=== PATIENT | male | born 1960 | race African-American/Black ===

== ENCOUNTER 2017-04-05 08:41 | Inpatient (IN) | payer OTHER ==
[2017-04-05 09:46] VITALS: BMI 18.7
--- NOTE | 2017-04-05 11:40 | HP ---
CIWA Score - CIWA Score Nausea/Vomitin Muscle Tremors: 3 Anxiety: 3 Agitation: 3 Paroxysmal Sweats: 3 Orientation: 0-Oriented Tacttile Disturbances: 1-Very Mild Itch/Numbness Auditory Disturbances: 0-None Visual Disturbances: 0-None Headache: 1-Very Mild CIWA-Ar Total Score: 17 Admission [facility] Chief Complaint: alcohol withdrawal sx Allergies/Adverse Reactions: Allergies Allergy/AdvReac Type Severity Reaction Status Date / Time No Known Allergies Allergy Verified 04/05/17 10:19 History of Present Illness: 56 yo m with h/o chronic alcoholism admitted for first detox to [facility]. 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, rreports alcohol withdrwal sx when he does nto drink Exam Limitations: No Limitations - Ebola screening Have you traveled outside of the country in the last 21 days: No Have you had contact with anyone from an Ebola affected area: No Have you been sick,other than usual withdrawal symptoms: No - Review of Systems Constitutional: Chills, Diaphoresis, Night Sweats, Weight Stable EENT: reports: No Symptoms Reported Respiratory: reports: No Symptoms reported Cardiac: reports: No Symptoms Reported GI: reports: Diarrhea, Nausea, Poor Appetite, Poor Fluid Intake, Abdominal cramping Integumentary: reports: Flushing, Sweating Neuro: reports: Headache, Numbness, Paresthesia, Seizure (withdrawal vs epilepsy on medication), Tingling, Tremors, Weakness Endocrine: reports: Increased Thirst Hematology: reports: No Symptoms Reported Psychiatric: reports: Judgement Intact, Mood/Affect Appropiate, Agitated, Anxious, Depressed Other Systems: Reviewed and Negative Patient History - Patient Medical History Hx Anemia: No Hx Asthma: No Hx Chronic Obstructive Pulmonary Disease (COPD): No Hx Cancer: No Hx Cardiac Disorders: No Hx Congestive Heart Failure: No Hx Hypertension: No Hx Hypercholesterolemia: No Hx Pacemaker: No HX Cerebrovascular Accident: No Hx Seizures: Yes (SEIZURE DISORDER LAST 1 YR AGO.) Hx Dementia: No Hx Diabetes: No Hx Gastrointestinal Disorders: No Hx Liver Disease: No Hx Genitourinary Disorders: No Hx Sexually Transmitted Disorders: No Hx Renal Disease (ESRD): No Hx Thyroid Disease: No Hx Human Immunodeficiency Virus (HIV): No Hx Hepatitis C: No Hx Depression: No Hx Suicide Attempt: No (no si at thsi time) Hx Bipolar Disorder: No Hx Schizophrenia: No - Patient Surgical History Past Surgical History: No Anesthesia Reaction: No - PPD History Previous Implant?: No PPD to be Administered?: Yes - Reproductive History Patient is a Female of Child Bearing Age (11 -55 yrs old): No Patient : No - Smoking Cessation Smoking history: Current every day smoker Have you smoked in the past 12 months: Yes Aproximately how many cigarettes per day: 5 Hx Chewing Tobacco Use: No Initiated information on smoking cessation: Yes 'Breaking Loose' booklet given: 04/05/17 - Substance & Tx. History Hx Alcohol Use: Yes Hx Substance Use: No Substance Use Type: Alcohol Hx Substance Use Treatment: Yes (outpatient [facility]) - Substances Abused Alcohol Route: Oral Frequency: Daily Amount used: 6PK BEER/ 1 PINT MCKENZIE Age of first use: 12 Date of Last Use: 04/05/17 Family Disease History - Family Disease History Family History: Denies Admission Physical Exam S - Vital Signs Vital Signs: Vital Signs - 24 hr 04/05/17 09:43 Temperature 96.5 F L Pulse Rate 52 L Respiratory 18 Rate Blood Pressure 140/100 - Physical General Appearance: Yes: Nourished, Appropriately Dressed, Disheveled, Mild Distress, Alcohol on Breath, Thin, Tremorous, Irritable, Sweating, Anxious HEENTM: Yes: EOMI, Hearing grossly Normal, Normocephalic, Normal Voice, MARTINE, Nasal Congestion Respiratory: Yes: Within Normal Limits, Chest Non-Tender, Lungs Clear, Normal Breath Sounds, No Respiratory Distress, No Accessory Muscle Use Neck: Yes: Within Normal Limits, No masses,lesions,Nodules, Supple, Trachea in good position Breast: Yes: Breast Exam Deferred Cardiology: Yes: Within Normal Limits, Regular Rhythm, Regular Rate, S1, S2 Abdominal: Yes: Within Normal Limits, Normal Bowel Sounds, Non Tender, Flat, Soft Genitourinary: Yes: Within Normal Limits Back: Yes: Within Normal Limits Musculoskeletal: Yes: Within Normal Limits, full range of Motion, Gait Steady, Pelvis Stable Extremities: Yes: Within Normal Limits, Normal Capillary Refill, Normal Inspection, Normal Range of Motion, Non-Tender Neurological: Yes: cyanide case hardener II-XII NML intact, Fully Oriented, Alert, Motor Strength 5/5, Normal Response, Depressed Affect Integumentary: Yes: Normal Color, Warm, Diaphoresis, Moist Lymphatic: Yes: Within Normal Limits - Addiitonal Findings: withdrawal sx, - Diagnostic (1) Alcohol dependence with uncomplicated withdrawal Current Visit: Yes Status: Acute (2) Dehydration Current Visit: Yes Status: Acute (3) Depression Current Visit: Yes Status: Acute (4) Insomnia Current Visit: Yes Status: Acute (5) Anxiety Current Visit: Yes Status: Acute (6) Cannabis abuse Current Visit: Yes Status: Acute Cleared for Admission [facility] - Detox or Rehab [facility] Level of Care: Medically Managed Detox Regimen/Protocol: Librium [facility] Breath Alcohol Content Breath Alcohol Content: 0.184 Urine Drug Screen - Results Drug Screen Negative: No Urine Drug Screen Results: THC-Marijuana
[2017-04-05] MEDS ORDERED: guaiFENesin/D-METHORPHAN HB 10 ML UNIT-DOSE CUPS PO PRN (11:41)
[2017-04-05] MEDS ORDERED: MAG HYDROX/AL HYDROX/SIMETH 30 ML UNIT-DOSE CUP PO PRN (11:41)
[2017-04-05] MEDS ORDERED: NICOTINE POLACRILEX 2 MG GUM BC PRN (11:41)
[2017-04-05] MEDS ORDERED: MAGNESIUM CITRATE 300 ML BOTTLE PO PRN (11:41)
[2017-04-05] MEDS ORDERED: MENTHOL/PHENOL 1 EACH UD MM PRN (11:41)
[2017-04-05] MEDS ORDERED: LOPERAMIDE HCL 2 MG CAPSULE PO PRN (11:41)
[2017-04-05] MEDS ORDERED: MAGNESIUM HYDROX 2400MG/30ML ORAL SUSPENSION 30 ML CUP PO PRN (11:41)
[2017-04-05] MEDS ORDERED: chlordiazePOXIDE HCL 25 MG CAPSULE PO ONE ×2 (12:46→14:02)
[2017-04-05] MEDS: NICOTINE 14 MG/24 HOURS TOPICAL PATCH TD SCH (14:03)
[2017-04-05] MEDS: levETIRAcetam 250 MG TABLET (FP) PO SCH ×2 (14:09→22:14)
[2017-04-05] MEDS: chlordiazePOXIDE HCL 25 MG CAPSULE PO SCH ×2 (16:51→22:14)
[2017-04-05] MEDS: ACETAMINOPHEN 325 MG TABLET (FP) PO PRN ×2 (16:54→22:16)
[2017-04-05 17:22] LABS: URINE APPEARANCE CLEAR; URINE BILIRUBIN NEGATIVE (NEGATIVE); URINE BLOOD NEGATIVE (NEGATIVE); URINE COLOR STRAW; URINE GLUCOSE (UA) NEGATIVE (NEGATIVE); URINE KETONE NEGATIVE (NEGATIVE); URINE LEUK ESTERASE NEGATIVE (NEGATIVE); URINE NITRITE NEGATIVE (NEGATIVE); URINE PROTEIN NEGATIVE (NEGATIVE); URINE UROBILINOGEN NEGATIVE mg/dL (0.2-1.0)
--- NOTE | 2017-04-05 17:41 | CONSULT ---
[facility] Psychiatric Consult - Data Date of interview: 04/05/17 Admission source: [facility] Identifying data: First admission to [facility] for this 56 y/o AA male seeking detox treatment on for alcohol and marihuana dependence.Patient declines to provide demographic information. Substance Abuse History: Information taken from [facility] report.Patient refuses to elaborate on his pattern of substance abuse." You should know better.The information is already in my file from downstairs.". Smoking history: Current every day smoker. Have you smoked in the past 12 months: Yes. Aproximately how many cigarettes per day: 5. Hx Chewing Tobacco Use: No. Initiated information on smoking cessation: Yes. 'Breaking Loose' booklet given: . - Substance & Tx. History. Hx Alcohol Use: Yes. Hx Substance Use: No. Substance Use Type: Alcohol. Hx Substance Use Treatment: Yes (outpatient [facility]). - Substances Abused. Alcohol. Route: Oral. Frequency: Daily. Amount used: 6PK BEER/ 1 PINT MCKENZIE. Age of first use: 12. Date of Last Use: 04/05/17 Medical History: Information extracted from [facility] report : seizure disorder (on levetiracetam) and arthritis. Psychiatric History: Patient denies. Physical/Sexual Abuse/Trauma History: Patient denies. Additional Comment: Urine Drug Screen Results: THC-Marijuana.Noted. Mental Status Exam - Mental Status Exam Alert and Oriented to: Time, Place, Person Cognitive Function: Grossly Intact Patient Appearance: Unkempt, Disheveled (thin habitus) Mood: Nervous, Anxious, Irritable Affect: Inappropriate Patient Behavior: Fatigued, Uncooperative, Guarded, Suspicious Speech Pattern: Clear Voice Loudness: Normal Thought Process: Goal Oriented Thought Disorder: Bizarre Hallucinations: Denies Suicidal Ideation: Denies Homicidal Ideation: Denies Insight/Judgement: Poor Sleep: Well Appetite: Good (observed eating diner) Gait/Station: Normal Psychiatric Findings - Problem List ([place] 1, 2,3) (1) Alcohol dependence with uncomplicated withdrawal Current Visit: Yes Status: Acute (2) Cannabis abuse Current Visit: Yes Status: Acute (3) Nicotine dependence Current Visit: Yes Status: Acute (4) Substance induced mood disorder Current Visit: Yes Status: Suspected - Initial Treatment Plan Initial Treatment Plan: Psychoeducation : rejected by patient.Detoxification in effect.Observation.
[2017-04-05] MEDS: P-EPHED 60MG/TRIPROLIDI 2.5MG TABLET PO PRN (20:52)
[2017-04-05] MEDS: THIAMINE HCL 100 MG TABLET (FP) PO SCH (22:14)
[2017-04-06] MEDS: chlordiazePOXIDE HCL 25 MG CAPSULE PO SCH ×4 (05:14→22:12)
[2017-04-06] MEDS: chlordiazePOXIDE HCL 25 MG CAPSULE PO PRN (07:28)
[2017-04-06] MEDS: NICOTINE 14 MG/24 HOURS TOPICAL PATCH TD SCH ×2 (09:24→11:21)
[2017-04-06] MEDS: PRENATAL VITAMINS W/ FOLIC ACID TABLET (FP) PO SCH (09:24)
[2017-04-06] MEDS: levETIRAcetam 250 MG TABLET (FP) PO SCH ×2 (10:05→22:12)
[2017-04-06 10:09] LABS: HEMATOCRIT 38.5 % (35.4-49); HEMOGLOBIN 12.6 GM/dL (11.7-16.9); MCHC 32.8 g/dl (32.0-35.9); MEAN CELL VOLUME 100.4 fl (80-96); MEAN PLT VOLUME 8.6 fl (7.5-11.1); PLATELET COUNT 214 K/MM3 (134-434); RBC 3.83 M/mm3 (4.00-5.60); RDW 14.9 % (11.9-15.9); WHITE BLOOD COUNT 5.4 K/mm3 (4.0-10.0)
[2017-04-06 10:14] LABS: CHLORIDE 106 mmol/L (98-107); POTASSIUM 4.3 mmol/L (3.5-5.1); SODIUM 142 mmol/L (136-145)
[2017-04-06 10:29] LABS: ALBUMIN 4.1 g/dl (3.4-5.0); ALK PHOS 101 U/L (45-117); ANION GAP 11 (8-16); BILIRUBIN,TOTAL 0.3 mg/dL (0.2-1.0); BLOOD UREA NITROGEN 8 mg/dL (7-18); CALCIUM 9.3 mg/dL (8.5-10.1); CO2 25 mmol/L (21-32); CREATININE 1.2 mg/dL (0.7-1.3); GLUCOSE,RANDOM 67 mg/dL (74-106); SGOT/AST 85 U/L (15-37); SGPT/ALT 70 U/L (12-78)
--- NOTE | 2017-04-06 11:40 | EKG ---
Test Reason : Blood Pressure : / mmHG Vent. Rate : 060 BPM Atrial Rate : 060 BPM P-R Int : 190 ms QRS Dur : 086 ms QT Int : 392 ms P-R-T Axes : 074 055 038 degrees QTc Int : 392 ms NORMAL SINUS RHYTHM NORMAL ECG NO PREVIOUS ECGS AVAILABLE Confirmed by JAH FREY MD ([id number]) on 04/06/2017 11:39:58 AM Referred By: Confirmed By:JAH FREY MD
[2017-04-06] MEDS ORDERED: FLU VACCINE QUAD 60 MCG/0.5 ML (MDV 17-18) IM ONE (12:00)
--- NOTE | 2017-04-06 12:17 | PN ---
[facility] CIWA - CIWA Score Nausea/Vomitin-No Nausea/No Vomiting Muscle Tremors: 5 Anxiety: 4-Mod. Anxious/Guarded Agitation: 4-Moderately Restless Paroxysmal Sweats: 1-Minimal Palms Moist Orientation: 0-Oriented Tacttile Disturbances: 3-Moderate Itch/Numb/Burn Auditory Disturbances: 0-None Visual Disturbances: 0-None Headache: 0-None Present CIWA-Ar Total Score: 17 S Progress Note (SOAP) Subjective: IRRITABILITY,SWEATS,TREMORS,AGITATION, INTERMITTENT SLEEP. Objective: 04/06/17 12:16 Vital Signs Temperature 96.9 F L 04/06/17 09:34 Pulse Rate 63 04/06/17 09:34 Respiratory Rate 20 04/06/17 09:34 Blood Pressure 149/96 04/06/17 09:34 O2 Sat by Pulse Oximetry (%) Laboratory Last Values WBC 5.4 K/mm3 (4.0-10.0) 04/06/17 05:45 RBC 3.83 M/mm3 (4.00-5.60) L 04/06/17 05:45 Hgb 12.6 GM/dL (11.7-16.9) 04/06/17 05:45 Hct 38.5 % (35.4-49) 04/06/17 05:45 MCV 100.4 fl (80-96) H 04/06/17 05:45 MCH 33.0 pg (25.7-33.7) 04/06/17 05:45 MCHC 32.8 g/dl (32.0-35.9) 04/06/17 05:45 RDW 14.9 % (11.9-15.9) 04/06/17 05:45 Plt Count 214 K/MM3 (134-434) 04/06/17 05:45 MPV 8.6 fl (7.5-11.1) 04/06/17 05:45 Sodium 142 mmol/L (136-145) 04/06/17 05:45 Potassium 4.3 mmol/L (3.5-5.1) 04/06/17 05:45 Chloride 106 mmol/L (98-107) 04/06/17 05:45 Carbon Dioxide 25 mmol/L (21-32) 04/06/17 05:45 Anion Gap 11 (8-16) 04/06/17 05:45 BUN 8 mg/dL (7-18) 04/06/17 05:45 Creatinine 1.2 mg/dL (0.7-1.3) 04/06/17 05:45 Creat Clearance w eGFR > 60 (>60) 04/06/17 05:45 Random Glucose 67 mg/dL (74-106) L 04/06/17 05:45 Calcium 9.3 mg/dL (8.5-10.1) 04/06/17 05:45 Total Bilirubin 0.3 mg/dL (0.2-1.0) 04/06/17 05:45 AST 85 U/L (15-37) H 04/06/17 05:45 ALT 70 U/L (12-78) 04/06/17 05:45 Alkaline Phosphatase 101 U/L (45-117) 04/06/17 05:45 Total Protein 8.0 g/dl (6.4-8.2) 04/06/17 05:45 Albumin 4.1 g/dl (3.4-5.0) 04/06/17 05:45 Urine Color Straw 04/05/17 15:15 Urine Appearance Clear 04/05/17 15:15 Urine pH 5.0 (5.0-8.0) 04/05/17 15:15 Ur Specific [place] 1.009 (1.001-1.035) 04/05/17 15:15 Urine Protein Negative (NEGATIVE) 04/05/17 15:15 Urine Glucose (UA) Negative (NEGATIVE) 04/05/17 15:15 Urine Ketones Negative (NEGATIVE) 04/05/17 15:15 Urine Blood Negative (NEGATIVE) 04/05/17 15:15 Urine Nitrite Negative (NEGATIVE) 04/05/17 15:15 Urine Bilirubin Negative (NEGATIVE) 04/05/17 15:15 Urine Urobilinogen Negative mg/dL (0.2-1.0) 04/05/17 15:15 Ur Leukocyte Esterase Negative (NEGATIVE) 04/05/17 15:15 Assessment: 04/06/17 12:16 WITHDRAWAL SX Plan: CONTINUE DETOX
[2017-04-06] MEDS: P-EPHED 60MG/TRIPROLIDI 2.5MG TABLET PO PRN (17:01)
--- NOTE | 2017-04-06 17:14 | PN ---
[facility] Progress Note Note: received nurse call that the patient wants ensure
[2017-04-06] MEDS: THIAMINE HCL 100 MG TABLET (FP) PO SCH (22:11)
[2017-04-06] MEDS: ACETAMINOPHEN 325 MG TABLET (FP) PO PRN (22:12)
[2017-04-06] MEDS: hydrOXYzine PAMOATE 50 MG CAPSULE (FP) PO PRN (23:24)
[2017-04-07] MEDS: chlordiazePOXIDE HCL 25 MG CAPSULE PO SCH ×2 (04:02→10:16)
[2017-04-07] MEDS: chlordiazePOXIDE HCL 25 MG CAPSULE PO PRN (05:17)
[2017-04-07] MEDS: ACETAMINOPHEN 325 MG TABLET (FP) PO PRN (08:17)
[2017-04-07] MEDS: NICOTINE 14 MG/24 HOURS TOPICAL PATCH TD SCH (10:16)
[2017-04-07] MEDS: levETIRAcetam 250 MG TABLET (FP) PO SCH ×2 (10:16→22:43)
[2017-04-07] MEDS: PRENATAL VITAMINS W/ FOLIC ACID TABLET (FP) PO SCH (10:17)
--- NOTE | 2017-04-07 10:30 | PN ---
[facility] CIWA - CIWA Score Nausea/Vomitin-No Nausea/No Vomiting Muscle Tremors: 4-Moderate,w/Arms Extend Anxiety: 4-Mod. Anxious/Guarded Agitation: 4-Moderately Restless Paroxysmal Sweats: 1-Minimal Palms Moist Orientation: 0-Oriented Tacttile Disturbances: 3-Moderate Itch/Numb/Burn Auditory Disturbances: 0-None Visual Disturbances: 0-None Headache: 0-None Present CIWA-Ar Total Score: 16 S Progress Note (SOAP) Subjective: ANXIETY,SWEATS,IRRITABILITY,AGITATIONS,HEADACHE. Objective: 04/07/17 10:28 Vital Signs Temperature 97.5 F L 04/07/17 10:11 Pulse Rate 86 04/07/17 10:11 Respiratory Rate 18 04/07/17 10:11 Blood Pressure 142/89 04/07/17 10:11 O2 Sat by Pulse Oximetry (%) Laboratory Last Values WBC 5.4 K/mm3 (4.0-10.0) 04/06/17 05:45 RBC 3.83 M/mm3 (4.00-5.60) L 04/06/17 05:45 Hgb 12.6 GM/dL (11.7-16.9) 04/06/17 05:45 Hct 38.5 % (35.4-49) 04/06/17 05:45 MCV 100.4 fl (80-96) H 04/06/17 05:45 MCH 33.0 pg (25.7-33.7) 04/06/17 05:45 MCHC 32.8 g/dl (32.0-35.9) 04/06/17 05:45 RDW 14.9 % (11.9-15.9) 04/06/17 05:45 Plt Count 214 K/MM3 (134-434) 04/06/17 05:45 MPV 8.6 fl (7.5-11.1) 04/06/17 05:45 Sodium 142 mmol/L (136-145) 04/06/17 05:45 Potassium 4.3 mmol/L (3.5-5.1) 04/06/17 05:45 Chloride 106 mmol/L (98-107) 04/06/17 05:45 Carbon Dioxide 25 mmol/L (21-32) 04/06/17 05:45 Anion Gap 11 (8-16) 04/06/17 05:45 BUN 8 mg/dL (7-18) 04/06/17 05:45 Creatinine 1.2 mg/dL (0.7-1.3) 04/06/17 05:45 Creat Clearance w eGFR > 60 (>60) 04/06/17 05:45 Random Glucose 67 mg/dL (74-106) L 04/06/17 05:45 Calcium 9.3 mg/dL (8.5-10.1) 04/06/17 05:45 Total Bilirubin 0.3 mg/dL (0.2-1.0) 04/06/17 05:45 AST 85 U/L (15-37) H 04/06/17 05:45 ALT 70 U/L (12-78) 04/06/17 05:45 Alkaline Phosphatase 101 U/L (45-117) 04/06/17 05:45 Total Protein 8.0 g/dl (6.4-8.2) 04/06/17 05:45 Albumin 4.1 g/dl (3.4-5.0) 04/06/17 05:45 Urine Color Straw 04/05/17 15:15 Urine Appearance Clear 04/05/17 15:15 Urine pH 5.0 (5.0-8.0) 04/05/17 15:15 Ur Specific [place] 1.009 (1.001-1.035) 04/05/17 15:15 Urine Protein Negative (NEGATIVE) 04/05/17 15:15 Urine Glucose (UA) Negative (NEGATIVE) 04/05/17 15:15 Urine Ketones Negative (NEGATIVE) 04/05/17 15:15 Urine Blood Negative (NEGATIVE) 04/05/17 15:15 Urine Nitrite Negative (NEGATIVE) 04/05/17 15:15 Urine Bilirubin Negative (NEGATIVE) 04/05/17 15:15 Urine Urobilinogen Negative mg/dL (0.2-1.0) 04/05/17 15:15 Ur Leukocyte Esterase Negative (NEGATIVE) 04/05/17 15:15 RPR Titer Nonreactive (NONREACTIVE) 04/06/17 05:45 Assessment: 04/07/17 10:28 WITHDRAWAL SX Plan: CONTINUE DETOX
[2017-04-07] MEDS: chlordiazePOXIDE 5 MG CAPSULE PO SCH ×2 (17:38→22:43)
[2017-04-07] MEDS: IBUPROFEN 400 MG TABLET (FP) PO PRN (17:40)
[2017-04-07] MEDS: THIAMINE HCL 100 MG TABLET (FP) PO SCH (22:43)
[2017-04-07] MEDS: hydrOXYzine PAMOATE 50 MG CAPSULE (FP) PO PRN (22:46)
[2017-04-08] MEDS: chlordiazePOXIDE 5 MG CAPSULE PO SCH ×2 (05:19→10:40)
[2017-04-08] MEDS: PRENATAL VITAMINS W/ FOLIC ACID TABLET (FP) PO SCH (10:40)
[2017-04-08] MEDS: NICOTINE 14 MG/24 HOURS TOPICAL PATCH TD SCH (10:41)
[2017-04-08] MEDS: levETIRAcetam 250 MG TABLET (FP) PO SCH ×2 (10:41→22:32)
[2017-04-08] MEDS: ACETAMINOPHEN 325 MG TABLET (FP) PO PRN ×2 (10:52→22:34)
--- NOTE | 2017-04-08 14:50 | PN ---
[facility] Progress Note (SOAP) Subjective: Stomach Cramping, interrupted Sleep, Tremors, Anxious. Objective: PT. A & O X 3, OBSERVED AMBULATING ON UNIT. NO ACUTE DISTRESS. 04/08/17 14:48 Vital Signs Temperature 98.1 F 04/08/17 13:51 Pulse Rate 98 H 04/08/17 13:51 Respiratory Rate 18 04/08/17 13:51 Blood Pressure 141/100 04/08/17 13:51 O2 Sat by Pulse Oximetry (%) Laboratory Tests 04/05/17 04/05/17 04/06/17 11:50 15:15 05:45 WBC 5.4 RBC 3.83 L Hgb 12.6 Hct 38.5 MCV 100.4 H MCH 33.0 MCHC 32.8 RDW 14.9 Plt Count 214 MPV 8.6 Sodium Potassium Chloride Carbon Dioxide Anion Gap BUN Creatinine Creat Clearance w eGFR Random Glucose Calcium Total Bilirubin AST ALT Alkaline Phosphatase Total Protein Albumin Urine Color Straw Urine Appearance Clear Urine pH 5.0 Ur Specific [place] 1.009 Urine Protein Negative Urine Glucose (UA) Negative Urine Ketones Negative Urine Blood Negative Urine Nitrite Negative Urine Bilirubin Negative Urine Urobilinogen Negative Ur Leukocyte Esterase Negative Levetiracetam 8.3 L RPR Titer 04/06/17 04/06/17 05:45 05:45 WBC RBC Hgb Hct MCV MCH MCHC RDW Plt Count MPV Sodium 142 Potassium 4.3 Chloride 106 Carbon Dioxide 25 Anion Gap 11 BUN 8 Creatinine 1.2 Creat Clearance w eGFR > 60 Random Glucose 67 L Calcium 9.3 Total Bilirubin 0.3 AST 85 H ALT 70 Alkaline Phosphatase 101 Total Protein 8.0 Albumin 4.1 Urine Color Urine Appearance Urine pH Ur Specific [place] Urine Protein Urine Glucose (UA) Urine Ketones Urine Blood Urine Nitrite Urine Bilirubin Urine Urobilinogen Ur Leukocyte Esterase Levetiracetam RPR Titer Nonreactive LABS NOTED. Assessment: 04/08/17 14:49 WITHDRAWAL SYMPTOMS. Plan: CONTINUE DETOX.
[2017-04-08] MEDS: chlordiazePOXIDE HCL 10 MG CAPSULE PO SCH ×2 (17:52→22:32)
[2017-04-08] MEDS: hydrOXYzine PAMOATE 50 MG CAPSULE (FP) PO PRN (22:32)
[2017-04-08] MEDS: THIAMINE HCL 100 MG TABLET (FP) PO SCH (22:32)
[2017-04-09] MEDS: chlordiazePOXIDE HCL 10 MG CAPSULE PO SCH ×2 (05:27→10:30)
[2017-04-09] MEDS: PRENATAL VITAMINS W/ FOLIC ACID TABLET (FP) PO SCH (10:31)
[2017-04-09] MEDS: NICOTINE 14 MG/24 HOURS TOPICAL PATCH TD SCH (10:31)
[2017-04-09] MEDS: levETIRAcetam 250 MG TABLET (FP) PO SCH ×2 (10:31→22:13)
[2017-04-09] MEDS: ACETAMINOPHEN 325 MG TABLET (FP) PO PRN (10:32)
--- NOTE | 2017-04-09 12:45 | PN ---
S Progress Note (SOAP) Subjective: Anxious, restless, interrupted sleep. Patient c/o sore to upper roof of mouth stating it was there in the past and noticed this couple days ago. Patient is scheduled for discharge today and requested to stay longer because he feels if he leaves today, he will go out and drink alcohol. 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 Patient stated he will consider rehab after spending [place] with his family. Objective: 04/09/17 12:42 Last Vital Signs Temp Pulse Resp BP Pulse Ox 97.7 F 70 18 159/98 04/09/17 09:24 04/09/17 09:24 04/09/17 09:24 04/09/17 09:24 Elevated b/p noted (denies HTN) PE: Mouth: small open ulcers with tiny yellow slough noted to frontal upper hard palate Laboratory Tests 04/05/17 04/05/17 04/06/17 11:50 15:15 05:45 WBC 5.4 RBC 3.83 L Hgb 12.6 Hct 38.5 MCV 100.4 H MCH 33.0 MCHC 32.8 RDW 14.9 Plt Count 214 MPV 8.6 Sodium Potassium Chloride Carbon Dioxide Anion Gap BUN Creatinine Creat Clearance w eGFR Random Glucose Calcium Total Bilirubin AST ALT Alkaline Phosphatase Total Protein Albumin Urine Color Straw Urine Appearance Clear Urine pH 5.0 Ur Specific [place] 1.009 Urine Protein Negative Urine Glucose (UA) Negative Urine Ketones Negative Urine Blood Negative Urine Nitrite Negative Urine Bilirubin Negative Urine Urobilinogen Negative Ur Leukocyte Esterase Negative Levetiracetam 8.3 L RPR Titer 04/06/17 04/06/17 05:45 05:45 WBC RBC Hgb Hct MCV MCH MCHC RDW Plt Count MPV Sodium 142 Potassium 4.3 Chloride 106 Carbon Dioxide 25 Anion Gap 11 BUN 8 Creatinine 1.2 Creat Clearance w eGFR > 60 Random Glucose 67 L Calcium 9.3 Total Bilirubin 0.3 AST 85 H ALT 70 Alkaline Phosphatase 101 Total Protein 8.0 Albumin 4.1 Urine Color Urine Appearance Urine pH Ur Specific [place] Urine Protein Urine Glucose (UA) Urine Ketones Urine Blood Urine Nitrite Urine Bilirubin Urine Urobilinogen Ur Leukocyte Esterase Levetiracetam RPR Titer Nonreactive Labs noted Assessment: 04/09/17 12:43 Withdrawal symptoms Noted with elevated b/p and aphthous ulcer to hard palate Plan: Continue detox Discharge date changed to tomorrow at patient's request due to alcohol crave Elevated b/p: low sodium in diet, clonidine 0.1mg PO q8hr prn, follow up with PCP in 1-2 week post discharge for management, abstain from alcohol Aphthous ulcer to hard palate: nystatin solution swish and spit q6hr, avoid irritation from toothbrush, follow up with PCP post discharge for monitoring
[2017-04-09] MEDS ORDERED: cloNIDine HCL 0.1 MG TABLET PO PRN (12:48)
[2017-04-09] MEDS: NYSTATIN 500,000 UNITS/5 ML SUSPENSION PO SCH ×2 (19:53→23:05)
[2017-04-09] MEDS: THIAMINE HCL 100 MG TABLET (FP) PO SCH (22:13)
[2017-04-09] MEDS: hydrOXYzine PAMOATE 50 MG CAPSULE (FP) PO PRN (22:14)
[2017-04-09] MEDS: IBUPROFEN 400 MG TABLET (FP) PO PRN (22:15)
[2017-04-10] MEDS: hydrOXYzine PAMOATE 50 MG CAPSULE (FP) PO PRN (03:42)
[2017-04-10] MEDS: NYSTATIN 500,000 UNITS/5 ML SUSPENSION PO SCH (06:18)
[2017-04-10 09:17] VITALS: BP 144/95; PULSE 66; TEMP 96.5
[2017-04-10] MEDS: levETIRAcetam 250 MG TABLET (FP) PO SCH (10:49)
[2017-04-10] MEDS: NICOTINE 14 MG/24 HOURS TOPICAL PATCH TD SCH (10:49)
[2017-04-10] MEDS: PRENATAL VITAMINS W/ FOLIC ACID TABLET (FP) PO SCH (10:49)
--- NOTE | 2017-04-10 11:21 | DS ---
[facility] Detox Discharge Summary Admission Date: 04/05/17 Discharge Date: 04/10/17 - History Present History: Alcohol Dependence Additional Comments: DETOX COMPLETED.ALERT O X 3. NAD. Pertinent Past History: SEIZURE DISORDER - Physical Exam Results Vital Signs: Vital Signs Temperature 96.5 F L 04/10/17 09:16 Pulse Rate 66 04/10/17 09:16 Respiratory Rate 18 04/10/17 09:16 Blood Pressure 144/95 04/10/17 09:16 O2 Sat by Pulse Oximetry (%) Laboratory Last Values WBC 5.4 K/mm3 (4.0-10.0) 04/06/17 05:45 RBC 3.83 M/mm3 (4.00-5.60) L 04/06/17 05:45 Hgb 12.6 GM/dL (11.7-16.9) 04/06/17 05:45 Hct 38.5 % (35.4-49) 04/06/17 05:45 MCV 100.4 fl (80-96) H 04/06/17 05:45 MCH 33.0 pg (25.7-33.7) 04/06/17 05:45 MCHC 32.8 g/dl (32.0-35.9) 04/06/17 05:45 RDW 14.9 % (11.9-15.9) 04/06/17 05:45 Plt Count 214 K/MM3 (134-434) 04/06/17 05:45 MPV 8.6 fl (7.5-11.1) 04/06/17 05:45 Sodium 142 mmol/L (136-145) 04/06/17 05:45 Potassium 4.3 mmol/L (3.5-5.1) 04/06/17 05:45 Chloride 106 mmol/L (98-107) 04/06/17 05:45 Carbon Dioxide 25 mmol/L (21-32) 04/06/17 05:45 Anion Gap 11 (8-16) 04/06/17 05:45 BUN 8 mg/dL (7-18) 04/06/17 05:45 Creatinine 1.2 mg/dL (0.7-1.3) 04/06/17 05:45 Creat Clearance w eGFR > 60 (>60) 04/06/17 05:45 Random Glucose 67 mg/dL (74-106) L 04/06/17 05:45 Calcium 9.3 mg/dL (8.5-10.1) 04/06/17 05:45 Total Bilirubin 0.3 mg/dL (0.2-1.0) 04/06/17 05:45 AST 85 U/L (15-37) H 04/06/17 05:45 ALT 70 U/L (12-78) 04/06/17 05:45 Alkaline Phosphatase 101 U/L (45-117) 04/06/17 05:45 Total Protein 8.0 g/dl (6.4-8.2) 04/06/17 05:45 Albumin 4.1 g/dl (3.4-5.0) 04/06/17 05:45 Urine Color Straw 04/05/17 15:15 Urine Appearance Clear 04/05/17 15:15 Urine pH 5.0 (5.0-8.0) 04/05/17 15:15 Ur Specific [place] 1.009 (1.001-1.035) 04/05/17 15:15 Urine Protein Negative (NEGATIVE) 04/05/17 15:15 Urine Glucose (UA) Negative (NEGATIVE) 04/05/17 15:15 Urine Ketones Negative (NEGATIVE) 04/05/17 15:15 Urine Blood Negative (NEGATIVE) 04/05/17 15:15 Urine Nitrite Negative (NEGATIVE) 04/05/17 15:15 Urine Bilirubin Negative (NEGATIVE) 04/05/17 15:15 Urine Urobilinogen Negative mg/dL (0.2-1.0) 04/05/17 15:15 Ur Leukocyte Esterase Negative (NEGATIVE) 04/05/17 15:15 Levetiracetam 8.3 MCG/ML (10.0-40.0) L 04/05/17 11:50 RPR Titer Nonreactive (NONREACTIVE) 04/06/17 05:45 Pertinent Admission Physical Exam Findings: WITHDRAWAL SX - Treatment Hospital Course: Detox Protocol Followed, Detoxed Safely, Responded well, Discharged Condition Good - Medication Discharge Medications: Ambulatory Orders Levetiracetam [Keppra -] 750 mg PO BID #60 tablet 04/08/17 - Diagnosis (1) Alcohol dependence with uncomplicated withdrawal Status: Acute (2) Nicotine dependence Status: Chronic Qualifiers: Nicotine product type: cigarettes Substance use status: in withdrawal Qualified Code(s): F17.213 - Nicotine dependence, cigarettes, with withdrawal - AMA Did Patient Leave Against Medical Advice: No
== END 2017-04-10 10:59 | disposition home or self-care (01) | DRG 897 ==
LOC: YASAS 08:41 → Y3N 11:56
PROVIDERS: ADMIT Internal Medicine; ATTEND Internal Medicine
PROC: HZ2ZZZZ Detoxification Services for Substance Abuse Treatment (ICD-10-PCS; principal; 2017-04-05)
DX: F10.230 Alcohol dependence with withdrawal, uncomplicated (principal); F12.20 Cannabis dependence, uncomplicated; F17.210 Nicotine dependence, cigarettes, uncomplicated; F19.24 Other psychoactive substance dependence with psychoactive substance-induced mood disorder; Z86.69 Personal history of other diseases of the nervous system and sense organs
CPT/HCPCS: 36415; 80053; 81003; 85027; 86593; 90688; 93005; 93010; G0008; J0735